=== PATIENT | female | born 1960 | race Caucasian/White ===

== ENCOUNTER 2016-11-07 18:43 | Emergency (ER) | payer MEDICAID, OTHER ==
[~2016-11-07] VITALS: Ht 162.6 cm; Wt 83.5 kg
[2016-11-07 18:46] VITALS: Ht 162.6 cm; Wt 83.5 kg
--- NOTE | 2016-11-07 18:54 | EN ---
Date/Time of Note Date/Time of Note DATE: 11/07/16 TIME: 18:52 ER Progress Note Quick RME note: Patient is a 56-year-old female who presents with right arm swelling and redness after dog bite. Patient reports worsening redness and swelling over the last 2 days. Patient states she was bit by her own dog. Physical exam: Right arm: Significant redness and swelling noted to the right arm. Appears warm to touch. 3 puncture wounds noted consistent with dog bite. Area appears infected. Patient will be evaluated in the ED 2 for further management of her symptoms. Pending examination and ED 2. UMM GOMEZ PA-C November 07, 2016 18:54
[2016-11-07] MEDS ORDERED: DIPHTH/TET/ACEL PERTUSS (ADULT) 0.5 ML VIAL IM* ONE (19:30)
[2016-11-07] MEDS ORDERED: CLINDAMYCIN 300 MG/D5W (PMX) 50 ML IVPB SCH (19:30)
[2016-11-07 20:31] LABS: ADD SCAN DIFF NO
[2016-11-07 20:40] LABS: HEMATOCRIT 41.9 % (37.0-47.0); HEMOGLOBIN 13.7 g/dl (12.0-16.0); MEAN CORPUSCULAR HEMOGLOBIN 29.8 pg (29.0-33.0); MEAN CORPUSCULAR HGB CONC 32.7 g/dl (32.0-37.0); MEAN CORPUSCULAR VOLUME 91.1 fl (82.0-101.0); MEAN PLATELET VOLUME 10.8 fl (7.4-10.4); PLATELET COUNT 309 10^3/UL (140-415); RED CELL DISTRIBUTION WIDTH 12.6 % (11.5-14.5); WHITE BLOOD COUNT 8.5 10^3/ul (4.8-10.8)
[2016-11-07 21:34] LABS: EOSINOPHILS # 0.2 10^3/ul (0.0-0.5); LYMPHOCYTES # 2.1 10^3/ul (0.8-2.9); MONOCYTE # 0.5 10^3/ul (0.3-0.9); NEUTROPHIL # 5.7 10^3/ul (1.6-7.5); PLATELET ESTIMATE PLT APPEAR ADEQUATE
[2016-11-07 21:37] LABS: PLATELETS CLUMPS RARE
[2016-11-07] MEDS ORDERED: CLIN-73 PO (21:40)
--- NOTE | 2016-11-07 21:51 | ERD ---
ER Documentation Chief Complaint Date/Time DATE: 11/07/16 TIME: 21:46 Chief Complaint right arm swelling, redness warm to touch x 2 days after dog bite HPI Patient is a 56-year-old female with no past medical history who presents to the ED with right arm swelling after sustaining a dog bite. Patient states that 4 days ago she was bit by her dog and later clawed 2 days ago. She states that the redness has spread on her arm. She denies fever or chills. She denies chest pain, cough, shortness of breath or difficulty breathing. Denies leg pain or swelling. She is not taking any medication for her symptoms. Patient is not up-to-date with her tetanus vaccine. ROS All systems reviewed and are negative except as per history of present illness. Medications Home Meds Active Scripts Clindamycin Hcl* (Clindamycin Hcl*) 300 Mg Capsule, 300 MG PO TID for 10 Days, CAP Prov:CLAUDETTE MONREAL PABlas 11/07/16 Allergies Allergies: Coded Allergies: Penicillins (Verified Allergy, Unknown, 12/31/13) Uncoded Allergies: CAT (Allergy, Unknown, 11/22/13) PMhx/Soc Anesthesia Reaction: No Hx Neurological Disorder: No Hx Respiratory Disorders: No Hx Cardiac Disorders: No Hx Psychiatric Problems: No Hx Alcohol Use: No Hx Substance Use: No Hx Tobacco Use: No Smoking Status: Never smoker FmHx Family History: No coronary disease, No diabetes, No other Physical Exam Vitals Vital Signs Date Time Temp Pulse Resp B/P Pulse Ox O2 Delivery O2 Flow Rate FiO2 11/07/16 18:46 98.1 108 20 148/83 99 Physical Exam GENERAL: Well-developed, well-nourished female. Appears in no acute distress. HEAD: Normocephalic, atraumatic. EYES: Pupils are equally reactive bilaterally. EOMs grossly intact. No conjunctival erythema. ENT: Moist mucous membranes. No uvula deviation. No kissing tonsils. No exudates. NECK: Supple. No lymphadenopathy or thyromegaly. No meningismus. negative kernig. negative brudinski. LUNG: Clear to auscultation bilaterally. No rhonchi, wheezing, rales or coarse breath sounds. HEART: Regular rate and rhythm. No murmurs, rubs or gallops. Extremities: Equal pulses bilaterally. No peripheral clubbing, cyanosis or edema. No unilateral leg swelling. Right arm has significant erythema with mild swelling. 3 puncture areas noted. No streaking. Warmth to touch. Slightly tender. Erythema is on the dorsal and partial ventral aspect of the arm. NEUROLOGIC: Alert and oriented. Moving all four extremities. 5/5 strength in all extremities. Normal speech. Steady gait. SKIN: Normal color. Warm and dry. No rashes or lesions. Capillary refill < 2 seconds Result Diagram: 11/07/161999 Results 24 hrs Laboratory Tests Test 11/07/16 20:00 White Blood Count 8.510^3/ul Red Blood Count 4.6010^6/ul Hemoglobin 13.7g/dl Hematocrit 41.9% Mean Corpuscular Volume 91.1fl Mean Corpuscular Hemoglobin 29.8pg Mean Corpuscular Hemoglobin Concent 32.7g/dl Red Cell Distribution Width 12.6% Platelet Count 22860^3/UL Mean Platelet Volume 10.8fl Neutrophils % 67.0% Lymphocytes % 25.0% Monocytes % 6.0% Eosinophils % 2.0% Neutrophils # 5.710^3/ul Lymphocytes # 2.110^3/ul Monocytes # 0.510^3/ul Eosinophils # 0.210^3/ul Differential Comment MANUAL DIFF Platelet Estimate PLT APPEAR ADEQUATE Clumped Platelets RARE Large Platelets FEW Current Medications Medications (Trade) Dose Ordered Sig/Shara Route PRN Reason Start Time Stop Time Status Last Admin Dose Admin Clindamycin HCl/ Dextrose (Cleocin 300 Mg/ D5W (Pmx)) 50 ml @ 100 mls/hr ONCE IVPB 11/07/16 19:30 11/07/16 19:59 DC 11/07/16 21:26 Diphtheria/ Tetanus/Acell Pertussis (Adacel) 0.5 ml ONCE ONCE IM* 11/07/16 19:30 11/07/16 19:32 DC 11/07/16 19:56 Procedures/MDM ER COURSE: I kept the patient and/or family informed of laboratory and diagnostic imaging results throughout the emergency room course. MEDICAL DECISION MAKING: This is a 56 year old female who presents with swelling and redness to her right arm after sustaining a dog bite 4 days ago. Vital signs were reviewed. Patient is afebrile. Patient is not hypoxic. Patient has mild tachycardia of 108. Patient is afebrile. Patient has cellulitis. patient was given IV clindamycin here in the ED. Tolerated well with no adverse reaction. CBC did not show signs of severe infection or neutrophilia. Patient did not want to be admitted at this time. Patient refused admission. At this point I do think that patient can be treated outpatient Jose however patient needs to return in 2 days for check. Area was marked and patient advised to return in 2 days for wound check. Low suspicion for necrotizing fasciitis, SJS, toxic epidermal necrolysis, Kawasaki, erythema multiforme, gangrene, scarlet fever, meningococcemia, sepsis, anaphylaxis, sepsis, deep space infection, or foreign body. DISCHARGE: At this time, patient is stable for discharge and outpatient management with no new complaints during the ER course. Patient was sent home with clindamycin and to return in 2 days for wound check.. Patient will be discharged home with instructions to recheck for new or worsening symptoms such as fever, nausea, weakness, LOC and to follow up with primary care in the next 1-2 days. Patient was advised to return to the ER for any new or worsening symptoms. Plan was discussed and patient and/or family understands and agrees. Home instructions were given. Departure Diagnosis: Primary Impression: Dog bite Encounter type: initial encounter Qualified Code: W54.0XXA - Dog bite, initial encounter Additional Impression: Cellulitis Site of cellulitis: extremity Site of cellulitis of extremity: upper extremity Laterality: right Qualified Code: L03.113 - Cellulitis of right upper extremity Condition: Stable Patient Instructions: Cellulitis, Dog Bite Additional Instructions: RETURN IN 2 DAYS FOR WOUND CHECK Call your primary care doctor TOMORROW for an appointment during the next 1-2 days.See the doctor sooner or return here if your condition worsens before your appointment time. CLAUDETTE MONREAL PA-C November 07, 2016 21:51
[2016-11-07 22:06] VITALS: BP 140/78; PULSE 83; RESP 18; TEMP 98.1
== END 2016-11-07 22:06 | disposition home or self-care (01) ==
LOC: FTE 18:43
DX: S41.151A Open bite of right upper arm, initial encounter (principal); L03.113 Cellulitis of right upper limb; W54.0XXA Bitten by dog, initial encounter; Y92.9 Unspecified place or not applicable; Z23 Encounter for immunization
CPT/HCPCS: 85025; 90471; 90715; 96374; S0077; Z7502